=== PATIENT | female | born 1965 | race Caucasian/White ===

== ENCOUNTER → 2020-10-06 10:47 | Outpatient (CLI) | payer OTHER, SELFPAY ==
--- NOTE | ~2020-10-06 | DEXA_ITS ---
Bone Density Report Name: Esperanza Lenz Age: 54 Sex: Female Ethnicity: White Date of : 1965 Indication: postmenopausal; screening for osteoporosis; parental hip fracture; Referring Provider: VALENTINA, YOUSIF Study: Bone densitometry was performed. Exam Date: October 06, 2020 Accession number: [id number] Bone Density: Region BMD T-score Z-score Classification AP Spine (L1-L4) 0.908 -1.3 -0.3 Osteopenia Femoral Neck (Left) 0.649 -1.8 -0.9 Osteopenia Total Hip (Left) 0.791 -1.2 -0.7 Osteopenia Femoral Neck (Right) 0.666 -1.6 -0.7 Osteopenia Total Hip (Right) 0.779 -1.3 -0.7 Osteopenia Total Hip Mean 0.785 -1.3 -0.7 Osteopenia World Health Organization criteria for BMD impression classify patients as: Normal (T-score at or above -1.0), Osteopenia (T-score between -1.0 and -2.5), or Osteoporosis (T-score at or below -2.5). 10-year Fracture Risk(1): Major Osteoporotic Fracture 12% Hip Fracture 0.6% Reported Risk Factors: [place] (), Neck BMD=0.649, BMI=29.2, parental fracture (1) FRAX(R) Version 3.08. Fracture probability calculated for an untreated patient. Fracture probability may be lower if the patient has received treatment. Clinical Information Provided by Patient: Parent has had a hip fracture Has used the following medications: Vitamin D, Calcium, ergon Patient maximum height was 63.3 Menopause Age: 51 Drinks caffeinated beverages Onset of menses at age 15 Number of children 2 Impression: The patient has low bone mass, based on the Left Femoral Neck T-score. The patient has an estimated ten-year risk of hip fracture of 0.6% and an estimated ten-year risk of major fracture of 12%, based on the WHO FRAX algorithm. The patient has risk factors, including: parental hip fracture. Discussion: BONE DENSITY IS LOW AT ONE OR MORE SKELETAL SITES. This patient's lowest T-score is low at one or more skeletal sites. It meets the World Health Organization's (WHO) criteria for ?low bone mass? (T-score between -1.0 and -2.5). The patient's 10-year risk of fracture as calculated by FRAX is less than the threshold where pharmacological therapy is recommended by the National Osteoporosis Foundation (NOF). However, all treatment decisions require clinical judgment and consideration of individual patient factors, including patient preferences, comorbidities, previous drug use, risk factors not captured in the FRAX model (e.g., frailty, falls, vitamin D deficiency, increased bone turnover, interval significant decline in bone density) and possible under or overestimation of fracture risk by FRAX. The patient should follow a healthful lifestyle (good nutrition with adequate calcium and vitamin D, and appropriate weight-bearing exercise). Follow-Up: Consider repeating this study in 2 to 3 year
== END ==
PROVIDERS: PCP Internal Medicine; Visit Provider Nurse Practitioner
DX: Z13.820 Encounter for screening for osteoporosis (principal); M85.852 Other specified disorders of bone density and structure, left thigh; M85.851 Other specified disorders of bone density and structure, right thigh
CPT/HCPCS: 77080

== ENCOUNTER → 2022-10-18 10:46 | Outpatient (CLI) | payer OTHER, SELFPAY ==
--- NOTE | ~2022-10-18 | DEXA_ITS ---
Bone Density Report Name: GINA MEZA Age: 56 Sex: Female Ethnicity: White Date of : 1965 Indication: osteopenia; parental hip fracture; postmenopausal Referring Provider: VALENTINA, YOUSIF Study: Bone densitometry was performed. Exam Date: October 18, 2022 Accession number: [id number] Bone Density: Region BMD T-score Z-score Classification AP Spine (L1-L4) 0.875 -1.6 -0.5 Osteopenia Femoral Neck (Left) 0.643 -1.9 -0.8 Osteopenia Total Hip (Left) 0.784 -1.3 -0.6 Osteopenia Femoral Neck (Right) 0.606 -2.2 -1.1 Osteopenia Total Hip (Right) 0.763 -1.5 -0.8 Osteopenia Total Hip Mean 0.774 -1.4 -0.7 Osteopenia World Health Organization criteria for BMD impression classify patients as: Normal (T-score at or above -1.0), Osteopenia (T-score between -1.0 and -2.5), or Osteoporosis (T-score at or below -2.5). 10-year Fracture Risk(1): Major Osteoporotic Fracture 15% Hip Fracture 1.1% Reported Risk Factors: [place] (), Neck BMD=0.606, BMI=28.8, parental fracture (1) FRAX(R) Version 3.08. Fracture probability calculated for an untreated patient. Fracture probability may be lower if the patient has received treatment. Previous Exams: Region Exam Age BMD T-score BMD Change BMD Change Date g/cm2 vs Baseline vs Previous AP Spine(L1-L4) 10/18/2022 56 0.875 -1.6 -0.033* -0.033* 10/06/2020 54 0.908 -1.3 Total Hip(Left) 10/18/2022 56 0.784 -1.3 -0.006 -0.006 10/06/2020 54 0.791 -1.2 Total Hip(Right) 10/18/2022 56 0.763 -1.5 -0.016 -0.016 10/06/2020 54 0.779 -1.3 *Denotes significance at 95% confidence level, LSC for AP Spine = 0.022 g/cm2, LSC for Total Hip = 0.027 g/cm2 Clinical Information Provided by Patient: Parent has had a hip fracture Has used the following medications: Vitamin D, Calcium, ergon Patient maximum height was 64 Menopause Age: 51 Drinks caffeinated beverages Onset of menses at age 15 Number of children 2 Impression: The patient has low bone mass, based on the Right Femoral Neck T-score. The patient has an estimated ten-year risk of hip fracture of 1.1% and an estimated ten-year risk of major fracture of 15%, based on the WHO FRAX algorithm. The patient has risk factors, including: parental hip fracture. The BMD for the AP Spine(L1-L4) decreased, changing by -0.033 since the last DXA exam. Discussion: BONE DENSITY IS LOW AT ONE OR MORE S
== END ==
PROVIDERS: PCP Internal Medicine; Visit Provider Nurse Practitioner
DX: M85.88 Other specified disorders of bone density and structure, other site (principal); M85.852 Other specified disorders of bone density and structure, left thigh; M85.851 Other specified disorders of bone density and structure, right thigh
CPT/HCPCS: 77080

== ENCOUNTER 2025-02-20 07:17 | Outpatient (CLI) | payer OTHER, SELFPAY ==
--- NOTE | ~2025-02-20 | DEXA_ITS ---
Bone Density Report Name: GINA MEZA Age: 59 Sex: Female Ethnicity: White Date of : 1965 Indication: postmenopausal; screening for osteoporosis; parental hip fracture; Referring Provider: BART, ROE Study: Bone densitometry was performed. Exam Date: February 20, 2025 Accession number: [id number] Bone Density: Region BMD T-score Z-score Classification AP Spine(L1-L4) 0.913 -1.2 0.0 Osteopenia Femoral Neck (Left) 0.641 -1.9 -0.7 Osteopenia Total Hip (Left) 0.812 -1.1 -0.3 Osteopenia Femoral Neck (Right) 0.588 -2.4 -1.2 Osteopenia Total Hip (Right) 0.748 -1.6 -0.8 Osteopenia Total Hip Mean 0.780 -1.4 -0.6 Osteopenia World Health Organization criteria for BMD impression classify patients as: Normal (T-score at or above -1.0), Osteopenia (T-score between -1.0 and -2.5), or Osteoporosis (T-score at or below -2.5). 10-year Fracture Risk: FRAX not reported because: Treated for osteoporosis Clinical Information Provided by Patient: Parent has had a hip fracture Is being treated for osteoporosis Has used the following medications: Evista (i.e. raloxifene), Vitamin D, Calcium Patient maximum height was 64 Menopause Age: 54 Drinks caffeinated beverages Onset of menses at age 15 Number of children 2 Impression: The patient has low bone mass, based on the Right Femoral Neck T-score. The patient has risk factors, including: parental hip fracture. Discussion: It is important to ask patients whether they are taking their medications and to encourage continued and appropriate compliance with their osteoporosis therapies to reduce fracture risk. It is also important to review their risk factors and encourage appropriate calcium and vitamin D intakes, exercise, fall prevention and other lifestyle measures. Follow-Up: Consider a repeat BMD and Vertebral Fracture Assessment (VFA) exam in 2 years or sooner if medically necessary, to reassess this patient's status. Reported by: DERIK on 02/20/2025 7:57:00 AM. Reviewed, dictated and finalized at location A.
--- OUTSIDE RECORDS SUMMARY | 2025-02-20 07:22 | XMS_ITS | Clinical Summary ---
Author Organization [facility] Address [address] [place] [address] Care Team Providers Care Scow Derrick Operator Name Role Phone Unavailable Primary Care Provider Unavailabl e Source Comments [facility],non-owned Affiliates and Associated Physician Practices is amultiple site organization consisting of ambulatory clinics and hospital sitesin [place], [place], [place] and [place]. This disclosure is being madepursuant to the Care Everywhere program and may not contain all information available regarding this patient. 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 Gender Identity Not on file Sexual Orientation Not on file Plan of Treatment Health Maintenance Due Date Last Done Comments COLOGUARD (AGES 45-75) - COL ON CA SCREENING 1965 COLON MONITORING 1965 COLONOSCOPY - COLON CA SCREENING 1967 CT COLONOGRAPHY - COLON CA SCREENING 1965 Colorectal Cancer Screening 1965 FIT - COLON CA SCREENING 1965 FLEX SIG - COLON CA SCREENING 1965 LIPID TESTING 1965 MAMMOGRAM 1965 HIV SCREENING 11/02/1982 HEPATITIS C SCREENING 10/29/1985 DTAP/TDAP/TD VACCINES (1 - Tdap) 11/02/1986 HEPATITIS B VACCINE (1 of 3 - 19+ 3-dose series) 11/02/1986 PNEUMOCOCCAL VACCINE 50+ (1 of 1 - PCV) 11/02/2017 ZOSTER VACCINE (1 of 2) 11/02/2017 COVID-19 VACCINE (1 - 2023-2 5 season) 2024 DEPRESSION SCREENING 09/03/2024 INFLUENZA VACCINE (Season Ended) 2025 HIB VACCINE Aged Out No longer eligi ble based on patient's age to complete this topic HPV VACCINE Aged Out No longer eligi ble based on patient's age to complete this topic MENINGOCOCCAL (Group B) VACC INE SHARED DECISION-MAKING Aged Out No longer eligibl e based on patient's age to complete this topic MENINGOCOCCAL GROUPS A/C/Y/W VACCINE Aged Out No longer eligible b ased on patient's age to complete this topic
== END 2025-02-20 07:18 | disposition home or self-care (01) ==
LOC: ANHIMG 07:20
PROVIDERS: PCP Registered Nurse; Visit Provider Nurse Practitioner Women's Health
DX: M85.89 Other specified disorders of bone density and structure, multiple sites (principal); Z78.0 Asymptomatic menopausal state
CPT/HCPCS: 77080